=== PATIENT | female | born 1985 | race African-American/Black ===

== ENCOUNTER 2025-01-08 04:14 | Inpatient (IN) | payer SELFPAY ==
[2025-01-08 08:04] VITALS: BMI 30.2
[2025-01-08] MEDS: Acetaminophen 500 MG TAB PO PRN (08:19)
[2025-01-08] MEDS ORDERED: Ibuprofen 800 MG TAB PO SCH (09:00)
[2025-01-08] MEDS: ADMIXTURE FEE IVPB SCH (09:14)
[2025-01-08] MEDS: SODIUM CHLORIDE IVPB SCH (09:14)
[2025-01-08] MEDS: GENTAMICIN IVPB SCH (09:14)
[2025-01-08] MEDS: Methylergonovine 0.2 MG/ML VIAL IM SCH ×2 (09:20→16:14)
[2025-01-08] MEDS: Clindamycin/D5W 900 MG in Premix 1 BAG IVPB SCH (10:24)
[2025-01-08] MEDS: Ondansetron PF 4 MG/2 ML Vial IVP PRN (11:30)
[2025-01-08 20:58] LABS: Hematocrit 25.3 % (34.9-44.5); Hemoglobin 7.5 g/dL (12.0-15.5); Mean Corpuscular Hemoglobin 19.0 pg (27.0-33.0); Mean Corpuscular Volume 64.1 fL (81.6-98.3); Platelet Count 246 10x3/uL (150-450); Red Blood Cell (RBC) Count 3.95 10x6/uL (3.90-5.03); White Blood Cell (WBC) Count 9.64 10x3/uL (3.5-10.5)
[2025-01-08 21:24] LABS: MDiff Complete? YES; Microcytosis MODERATE=15-30 cells (100X) (0-5/hpf); Platelet Adequacy Comment Appears Adequate
[2025-01-09 05:23] LABS: BHCG - Serum POSITIVE (NEGATIVE); Pregs Control Background? CLEAR/WHITE (CLR/WHITE); Pregs Control Bar Appear? YES (CONTROL BAR)
[2025-01-09] MEDS: Methylergonovine 0.2 MG/ML VIAL IM SCH (08:00)
[2025-01-09] MEDS: GENTAMICIN IVPB SCH (08:00)
[2025-01-09] MEDS: ADMIXTURE FEE IVPB SCH (08:00)
[2025-01-09] MEDS: SODIUM CHLORIDE IVPB SCH (08:00)
[2025-01-09] MEDS: Acetaminophen 500 MG TAB PO SCH (09:29)
[2025-01-09 11:48] LABS: #Basophils 0.06 10x3/uL (0.0-0.2); #Eosinophils 0.03 10x3/uL (0.0-0.5); #Monocytes 0.84 10x3/uL (0.0-1.1); #Neutrophils 6.84 10x3/uL (1.5-8.4); %Basophils 0.6 % (0.0-2.0); %Eosinophils 0.3 % (0.0-6.0); %Lymphocytes 25.7 % (18.0-47.0); %Monocytes 8.0 % (0.0-10.0); %Neutrophils 64.6 % (40.0-75.0); Hematocrit 25.6 % (34.9-44.5); Hemoglobin 7.4 g/dL (12.0-15.5); Mean Corpuscular Hemoglobin 18.5 pg (27.0-33.0); Mean Corpuscular Volume 63.8 fL (81.6-98.3); Platelet Count 261 10x3/uL (150-450); Red Blood Cell (RBC) Count 4.01 10x6/uL (3.90-5.03); White Blood Cell (WBC) Count 10.56 10x3/uL (3.5-10.5)
[2025-01-09 12:47] LABS: Anisocytosis MODERATE=16-30 cells (100X) (0-5/hpf); Microcytosis MODERATE=15-30 cells (100X) (0-5/hpf); Ovalocytes SLIGHT = 2-5 cells (100X) (0-1/hpf); Platelet Adequacy Comment Appears Adequate; Poikilocytosis SLIGHT = 6-15 cells (100X) (0-5/hpf); Reflex for Review?? YES
[2025-01-09] MEDS: Ferrous Sulfate 325 MG TAB PO SCH (22:21)
[2025-01-10 05:53] LABS: BHCG - Serum POSITIVE (NEGATIVE); Pregs Control Background? CLEAR/WHITE (CLR/WHITE); Pregs Control Bar Appear? YES (CONTROL BAR)
[2025-01-10] MEDS: Ferrous Sulfate 325 MG TAB PO SCH (07:39)
[2025-01-10 07:41] VITALS: BP 129/71; TEMP 100
[2025-01-12 17:14] LABS: Hemoglobin A2 2.2 % (1.8-3.2); Hemoglobin F 0 % (0.0-2.0); Hemoglobin S 0.0 % (0.0); Interpretation Note: (.)
== END 2025-01-10 09:20 | disposition home or self-care (01) | DRG 779 ==
LOC: CSHPP 06:16
PROVIDERS: ADMIT Obstetrics & Gynecology; ATTEND Obstetrics & Gynecology
PROC: 3E03329 Introduction of Other Anti-infective into Peripheral Vein, Percutaneous Approach (ICD-10-PCS; principal; 2025-01-08)
PROC: 30233N1 Transfusion of Nonautologous Red Blood Cells into Peripheral Vein, Percutaneous Approach (ICD-10-PCS; 2025-01-08)
DX: O03.5 Genital tract and pelvic infection following complete or unspecified spontaneous abortion (principal); A41.9 Sepsis, unspecified organism; E87.6 Hypokalemia; D50.9 Iron deficiency anemia, unspecified; Z98.890 Other specified postprocedural states; Z79.899 Other long term (current) drug therapy
CPT/HCPCS: 36415; 76856; 83021; 84702; 84703; 85025; 85060; 85660; 86850; 86900; 86901; 93976; J0290; J1580; J2210; J2270; J2405; J3490; J7120; P9016